=== PATIENT | female | born 1990 | race Caucasian/White ===

== ENCOUNTER 2019-06-07 12:21 | Emergency (ER) | payer OTHER ==
[~2019-06-07] VITALS: Ht 149.9 cm; Wt 78.5 kg
[2019-06-07 12:31] VITALS: Ht 149.9 cm; Wt 78.5 kg
[2019-06-07 12:59] LABS: BASOPHIL % 0.9 % (0-2); PLATELET COUNT 204 x10^3mcL (130-400); RED CELL DISTRIBUTION WIDTH 13.6 % (11.5-14.5)
[2019-06-07 14:05] VITALS: BP 138/76
== END 2019-06-07 14:05 | disposition home or self-care (01) ==
LOC: ED 12:21
DX: N93.8 Other specified abnormal uterine and vaginal bleeding (principal)
CPT/HCPCS: 36415

== ENCOUNTER 2020-01-16 12:41 | Emergency (ER) | payer OTHER ==
[~2020-01-16] VITALS: Ht 149.9 cm; Wt 75.3 kg
[2020-01-16 12:49] VITALS: Ht 149.9 cm; Wt 75.3 kg
[2020-01-16 13:20] LABS: UA SPECIFIC GRAVITY >=1.030 (1.005-1.035); microscopic required? YES; urine erythrocyte 3+ (NEGATIVE)
[2020-01-16 13:20] LABS: BASOPHIL % 0.2 % (0-2); PLATELET COUNT 249 x10^3mcL (130-400); RED CELL DISTRIBUTION WIDTH 14.8 % (11.5-14.5)
[2020-01-16 16:28] VITALS: BP 126/65
== END 2020-01-16 16:28 | disposition home or self-care (01) ==
LOC: ED 12:41
PROVIDERS: Emergency Medicine
DX: O20.0 Threatened abortion (principal); Z3A.09 9 weeks gestation of pregnancy
CPT/HCPCS: 36415; J1460